=== PATIENT | female | born 1970 | race Caucasian/White ===

== ENCOUNTER 2017-03-01 19:43 | Emergency (ER) | payer OTHER ==
[~2017-03-01] VITALS: Ht 162.6 cm; Wt 70.0 kg
[2017-03-01 19:46] VITALS: BP 172/84; PULSE 118; RESP 24; TEMP 98.9; O2SAT 99
[2017-03-01] MEDS ORDERED: ONDANSETRON ODT 4 MG TAB PO ONE (20:15)
[2017-03-01] MEDS ORDERED: SODIUM CHLOR 0.9% 1000 ML INJ 1,000 ML IV SCH (20:22)
[2017-03-01] MEDS ORDERED: ONDANSETRON HCL 4 MG/2 ML VIAL IVP ONE (20:30)
[2017-03-01] MEDS ORDERED: LOPERAMIDE HCL 2 MG CAP PO ONE (20:30)
[2017-03-01] MEDS ORDERED: SODIUM CHLORIDE 0.9% FLUSH 10 ML FLUSH IV FLUSH PRN (20:30)
--- NOTE | 2017-03-01 21:01 | PD ---
HPI Chief Complaint: GI Complaint Time Seen by Provider: 20:02 Travel History International Travel<30 days: No Contact w/Intl Traveler<30days: No Traveled to known affect area: No History of Present Illness HPI 46 year-old woman, presents with severe nausea and vomiting that started over the past hour or so. She had diarrhea once he arrived in the emergency department. Some epigastric abdominal pain. She is a history of GERD. No definite sick contacts. No recent travel or unusual or undercooked foods. Was feeling completely well for the symptoms started. No fevers. No other complaints. History Past Medical History Medical History: Denies Significant Hx Tetanus Vaccination: Unknown Influenza Vaccination: No Past Surgical History Surgical History: No Previous Surgery Social History Alcohol Use: Yes (daily liquor) Tobacco Use: Yes Allergies-Medications (Allergen,Severity, Reaction): Coded Allergies: No Known Allergies (Unverified , 03/01/17) Reported Meds & Prescriptions Reported Meds & Active Scripts Active No Active Prescriptions or Reported Medications Review of Systems Except as stated in HPI: all other systems reviewed are Neg Physical Exam Narrative GENERAL: 46 year-old woman, appears uncomfortable but nontoxic. Intermittent vomiting. SKIN: Focused skin assessment warm/dry. HEAD: Atraumatic. Normocephalic. EYES: Pupils equal and round. No scleral icterus. No injection or drainage. ENT: No nasal bleeding or discharge. Mucous membranes pink and moist. NECK: Trachea midline. No JVD. CARDIOVASCULAR: Regular rate and rhythm. No murmur appreciated. RESPIRATORY: No accessory muscle use. Clear to auscultation. Breath sounds equal bilaterally. GASTROINTESTINAL: Abdomen is flat and soft. Benign exam. MUSCULOSKELETAL: No obvious deformities. No clubbing. No cyanosis. No edema. NEUROLOGICAL: Awake and alert. No obvious cranial nerve deficits. Motor grossly within normal limits. Normal speech. PSYCHIATRIC: Appropriate mood and affect; insight and judgment normal. Data Data Last Documented VS Vital Signs Date Time Temp Pulse Resp B/P (MAP) Pulse Ox O2 Delivery O2 Flow Rate FiO2 03/01/17 21:43 75 16 130/73 (92) 98 Room Air 03/01/17 19:46 98.9 Orders Orders Ondansetron Odt (Zofran Odt) (03/01/17 20:15) Complete Blood Count With Diff (03/01/17 20:22) Comprehensive Metabolic Panel (03/01/17 20:22) Lipase (03/01/17 20:22) Iv Access Insert/Monitor (03/01/17 20:22) Ondansetron Inj (Zofran Inj) (03/01/17 20:30) Sodium Chlor 0.9% 1000 Ml Inj (Ns 1000 M (03/01/17 20:22) Sodium Chloride 0.9% Flush (Ns Flush) (03/01/17 20:30) Loperamide (Imodium) (03/01/17 20:30) Labs Laboratory Tests Test 03/01/17 20:48 03/01/17 21:40 White Blood Count 20.0 TH/MM3 Red Blood Count 5.62 MIL/MM3 Hemoglobin 17.8 GM/DL Hematocrit 52.8 % Mean Corpuscular Volume 94.0 FL Mean Corpuscular Hemoglobin 31.7 PG Mean Corpuscular Hemoglobin Concent 33.7 % Red Cell Distribution Width 13.4 % Platelet Count 410 TH/MM3 Mean Platelet Volume 7.2 FL Neutrophils (%) (Auto) 74.8 % Lymphocytes (%) (Auto) 19.2 % Monocytes (%) (Auto) 4.7 % Eosinophils (%) (Auto) 0.9 % Basophils (%) (Auto) 0.4 % Neutrophils # (Auto) 15.0 TH/MM3 Lymphocytes # (Auto) 3.8 TH/MM3 Monocytes # (Auto) 0.9 TH/MM3 Eosinophils # (Auto) 0.2 TH/MM3 Basophils # (Auto) 0.1 TH/MM3 CBC Comment DIFF FINAL Differential Comment Blood Urea Nitrogen 17 MG/DL Creatinine 0.89 MG/DL Random Glucose 106 MG/DL Total Protein 7.6 GM/DL Albumin 3.9 GM/DL Calcium Level 8.6 MG/DL Alkaline Phosphatase 67 U/L Aspartate Amino Transf (AST/SGOT) 20 U/L Alanine Aminotransferase (ALT/SGPT) 28 U/L Total Bilirubin 0.3 MG/DL Sodium Level 141 MEQ/L Potassium Level 3.6 MEQ/L Chloride Level 106 MEQ/L Carbon Dioxide Level 27.3 MEQ/L Anion Gap 8 MEQ/L Estimat Glomerular Filtration Rate 69 ML/MIN Lipase 190 U/L [facility] Medical Decision Making Medical Screen Exam Complete: Yes Emergency Medical Condition: Yes Interpretation(s) LABS: CBC remarkable for white count 20,000, hemoglobin 17.8 CMP is unremarkable Lipase is normal. Differential Diagnosis Gastroneuritis, gastritis, UTI, obstruction, other Narrative Course 46-year-old woman, nausea vomiting diarrhea. Looks well. There are abrupt in onset. Suspect gastroenteritis. We'll check labs, IV fluids, symptomatic treatment. FINAL: Patient with acute onset nausea vomiting diarrhea. Actually significantly improved at this time. CBC is remarkable for elevation the hemoglobin and the white count. This could be some dehydration and stress reaction. She has a completely benign abdomen does not look toxic and I don't think the white count indicative of severe underlying infection. I discussed these findings with the patient. She is agreeable to return for any worsening symptoms. Diagnosis Primary Impression: Gastroenteritis Additional Instructions: Use Zofran if needed for nausea or vomiting. Use loperamide if needed for diarrhea. Drink plenty fluids and stay well-hydrated. Return to the emergency department for any worsening abdominal pain, bloody diarrhea, high fevers, or any other new or worsening symptoms. Med/Other Pt SpecificInfo: Prescription(s) given Scripts Loperamide (Loperamide) 2 Mg Cap 2 MG PO DIRECTED Y for DIARRHEA, #8 CAP 0 Refills One capsule after each loose stool. Not to exceed 8 capsules per day. Prov: Guy Cam MD 03/01/17 Ondansetron Odt (Zofran Odt) 4 Mg Tab 4 MG SL Q8HR Y for Nausea/Vomiting, #8 TAB 0 Refills Prov: Guy Cam MD 03/01/17 Disposition: 01 DISCHARGE HOME Condition: Stable Guy Cam MD Mar 01, 2017 21:01
[2017-03-01 21:05] LABS: BASOPHIL # 0.1 TH/MM3 (0-0.2); BASOPHIL % 0.4 % (0.0-2.0); EOSINOPHIL # 0.2 TH/MM3 (0-0.4); EOSINOPHIL % 0.9 % (0.0-4.0); HEMATOCRIT 52.8 % (35.0-46.0); HEMOGLOBIN 17.8 GM/DL (11.6-15.3); LYMPH % 19.2 % (9.0-44.0); LYMPHOCYTE # 3.8 TH/MM3 (1.0-4.8); MEAN CORPUSCULAR HEMOGLOBIN 31.7 PG (27.0-34.0); MEAN CORPUSCULAR HGB CONC 33.7 % (32.0-36.0); MEAN PLATELET VOLUME 7.2 FL (7.0-11.0); MONO % 4.7 % (0.0-8.0); MONOCYTE # 0.9 TH/MM3 (0-0.9); NEUT % 74.8 % (16.0-70.0); PLATELET COUNT 410 TH/MM3 (150-450); RED BLOOD COUNT 5.62 MIL/MM3 (4.00-5.30); RED CELL DISTRIBUTION WIDTH 13.4 % (11.6-17.2)
[2017-03-01 21:43] VITALS: BP 130/73; PULSE 75; RESP 16; O2SAT 98
[2017-03-01 22:24] LABS: ALKALINE PHOSPHATASE 67 U/L (45-117); TOTAL BILIRUBIN ADULT 0.3 MG/DL (0.2-1.0); TOTAL PROTEIN 7.6 GM/DL (6.4-8.2)
[2017-03-01 22:28] LABS: ALBUMIN 3.9 GM/DL (3.4-5.0); ALT (GPT) 28 U/L (10-53); AST (GOT) 20 U/L (15-37); BICARBONATE 27.3 MEQ/L (21.0-32.0); BLOOD UREA NITROGEN 17 MG/DL (7-18); CALCIUM 8.6 MG/DL (8.5-10.1); CHLORIDE 106 MEQ/L (98-107); CREATININE 0.89 MG/DL (0.50-1.00); GLOMERULAR FILTRATION RATE 69 ML/MIN (>89); GLUCOSE,RANDOM 106 MG/DL (74-106); LIPASE 190 U/L (73-393); SODIUM (NA) 141 MEQ/L (136-145)
[2017-03-01] MEDS ORDERED: LOPE2CAP PO (22:34)
[2017-03-01] MEDS ORDERED: ZOFR4TAB3 SL (22:34)
== END 2017-03-01 23:00 | disposition home or self-care (01) ==
LOC: NEPD 19:43
DX: K52.9 Noninfective gastroenteritis and colitis, unspecified (principal); K21.9 Gastro-esophageal reflux disease without esophagitis; Z72.0 Tobacco use
CPT/HCPCS: 80053; 83690; 85025; 96374; 99284; J2405; J7030